=== PATIENT | female | born 1990 | race Caucasian/White ===

== ENCOUNTER 2017-04-16 21:05 | Emergency (ER) | payer OTHER ==
--- NOTE | 2017-04-16 21:21 | EDPHY ---
H & P Stated Complaint: Poss panic attack Source: Patient Exam Limitations: No limitations - Personal History LMP (Females 10-55): IUD In Place Current Tetanus/Diphtheria Vaccine: Yes Current Tetanus Diphtheria and Acellular Pertussis (TDAP): Yes - Medical/Surgical History Hx Asthma: No Hx Chronic Respiratory Disease: No Hx Diabetes: No Hx Cardiac Disease: No Hx Renal Disease: No Hx Cirrhosis: No Hx Alcoholism: No Hx HIV/AIDS: No Hx Splenectomy or Spleen Trauma: No Other PMH: anxiety - Social History Smoking Status: Never smoked Time Seen by Provider: 04/16/17 21:20 HPI/ROS: HPI: This is a 27-year-old female who presents with Chief Complaint: Possible anxiety attack Location: Head Quality: Dizziness Duration: Several days Signs and Symptoms: No fever, no chills, no neck stiffness, headache, no vision changes, no photophobia, no sensitivity, no abdominal pain, no nausea, no vomiting, no urinary symptoms, no chest pain, no palpitations Timing: Intermittent episodes Severity: Moderate Context: Patient reports that 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 She denies the room spinning around. She then started to feel her whole body hot and tingling run down both arms. She reports that was not a particular stressful evening. She is concerned is these episodes have been occurring over the last 2-3 days lasting approximately 1-2 hours at a time and resolving on its own. She does report she has anxiety but feels like this is different. Denies any upper respiratory symptoms, fever, neck stiffness, headache. IUD in place. She is generally healthy and does not have a primary care provider. Modifying Factors: None Comment: ROS: see HPI Constitutional: No fever, no chills, no weight loss Eyes: No blurred vision Respiratory: No shortness of breath, no cough Cardiovascular: No chest pain Gastrointestinal: No nausea, no vomiting, no diarrhea Genitourinary: No dysuria Extremities: No myalgias Neurologic: No weakness, no numbness Skin: No rashes Hematologic: No bruising, no bleeding MEDICAL/SURGICAL/SOCIAL HISTORY: Medical history: Generally healthy. Does not take any regular medications. Surgical history: Denies Social history: Employed. CONSTITUTIONAL: Tearful adult white female, polite and cooperative, awake and alert, no obvious distress HEENT: Atraumatic and normocephalic, PERRL, EOMI. Tympanic membranes clear. Oropharynx clear, no exudate and moist pink mucosa. Airway patent. No lymphadenopathy. No meningismus. Cardiovascular: Normal S1/S2, regular rate, regular rhythm, without murmur rub or gallop. PULMONARY/CHEST: Symmetrical and nontender. Clear to auscultation bilaterally. Good air movement. No accessory muscle usage. ABDOMEN: Soft, nondistended, nontender, no rebound, no guarding, no peritoneal signs, no masses or organomegaly. No CVAT. EXTREMITIES: 2/2 pulses, strength 5/5, no deformities, no clubbing, no cyanosis or edema. NEUROLOGICAL: no focal neuro deficits. GCS 15. SKIN: Warm and dry, no erythema. no rash. Good capillary refill. (Esthela Cochran) Constitutional: Initial Vital Signs Temperature (C) 36.3 C 04/16/17 21:06 Heart Rate 80 04/16/17 21:06 Respiratory Rate 18 04/16/17 21:06 Blood Pressure 140/94 H 04/16/17 21:06 O2 Sat (%) 99 04/16/17 21:06 O2 Delivery Mode Room Air Allergies/Adverse Reactions: No Known Allergies Allergy (Unverified 04/16/17 21:09) Home Medications: Medication Instructions Recorded NK [No Known Home Meds] 04/16/17 Medical Decision Making - Diagnostics EKG Interpretation: EKG: Complete interpretation has been separately recorded in the [email or web address] archive. Summary impression: Sinus rhythm, rate 66 (Nic Mark) Procedures: 12 lead EKG: Indication: Dizziness Rhythm: Normal sinus rhythm, rate 66 beats per minute [place]: Normal Intervals: Normal QRS: Normal ST segments: Normal INTERPRETATION: Normal EKG The 12 lead EKG was interpreted by myself and with attending. (Esthela Cochran) ED Course/Re-evaluation: Labs, urinalysis, EKG, IV fluids, IV medications ordered Given 1 L normal saline IV Ativan mg Vital signs reviewed and unremarkable Labs reviewed and unremarkable. No signs of anemia/electrolyte imbalance/acute kidney injury/elevated LFTs/pulmonary embolism EKG reviewed and no signs of arrhythmia TSH level noted to be elevated; free T4 within limits; no signs of myxedema coma. Advised to follow up with primary care provider to start thyroid medication Urinalysis shows trace bacteria and trace blood; asymptomatic; sent for urine culture; will not start prophylactic antibiotic therapy (Esthela Cochran) Differential Diagnosis: Shortness of breath including but not limited to anxiety, asthma, pulmonary embolus and viral syndrome. (Esthela Cochran) - Data Points Laboratory Results: Laboratory Results 04/16/17 22:00 04/16/17 22:00 04/16/17 04/16/17 04/16/17 22:59 22:00 22:00 WBC RBC Hgb Hct MCV MCH MCHC RDW Plt Count MPV Neut % (Auto) Lymph % (Auto) [place] % (Auto) Eos % (Auto) Baso % (Auto) Nucleat RBC Rel Count Absolute Neuts (auto) Absolute Lymphs (auto) Absolute Monos (auto) Absolute Eos (auto) Absolute Basos (auto) Absolute Nucleated RBC Immature Gran % Immature Gran # D-Dimer 0.28 ug/mLFEU ug/mLFEU (0.00-0.50) Sodium Potassium Chloride Carbon Dioxide Anion Gap BUN Creatinine Estimated GFR Glucose Calcium TSH Free T4 Beta HCG, Qual NEGATIVE Specimen Hemolysis Urine Color COLORLESS Urine Appearance CLEAR Urine pH 6.0 (5.0-7.5) Ur Specific [place] 1.001 L (1.002-1.030) Urine Protein NEGATIVE (NEGATIVE) Urine Ketones NEGATIVE (NEGATIVE) Urine Blood 1+ H (NEGATIVE) Urine Nitrate NEGATIVE (NEGATIVE) Urine Bilirubin NEGATIVE (NEGATIVE) Urine Urobilinogen NEGATIVE EU EU (0.2-1.0) Ur Leukocyte Esterase NEGATIVE (NEGATIVE) Urine RBC 1-3 /hpf /hpf (0-3) Urine WBC 1-3 /hpf /hpf (0-3) Ur Epithelial Cells NONE SEEN /lpf /lpf (NONE-1+) Urine Bacteria TRACE /hpf H /hpf (NONE SEEN) Urine Glucose NEGATIVE (NEGATIVE) 04/16/17 04/16/17 04/16/17 22:00 22:00 21:00 WBC 8.84 10^3/uL 10^3/uL (3.80-9.50) RBC 4.76 10^6/uL 10^6/uL (4.18-5.33) Hgb 14.8 g/dL g/dL (12.6-16.3) Hct 42.4 % % (38.0-47.0) MCV 89.1 fL fL (81.5-99.8) MCH 31.1 pg pg (27.9-34.1) MCHC 34.9 g/dL g/dL (32.4-36.7) RDW 12.4 % % (11.5-15.2) Plt Count 237 10^3/uL 10^3/uL (150-400) MPV 10.3 fL fL (8.7-11.7) Neut % (Auto) 71.0 % % (39.3-74.2) Lymph % (Auto) 21.3 % % (15.0-45.0) [place] % (Auto) 5.8 % % (4.5-13.0) Eos % (Auto) 1.0 % % (0.6-7.6) Baso % (Auto) 0.8 % % (0.3-1.7) Nucleat RBC Rel Count 0.0 % % (0.0-0.2) Absolute Neuts (auto) 6.28 10^3/uL 10^3/uL (1.70-6.50) Absolute Lymphs (auto) 1.88 10^3/uL 10^3/uL (1.00-3.00) Absolute Monos (auto) 0.51 10^3/uL 10^3/uL (0.30-0.80) Absolute Eos (auto) 0.09 10^3/uL 10^3/uL (0.03-0.40) Absolute Basos (auto) 0.07 10^3/uL 10^3/uL (0.02-0.10) Absolute Nucleated RBC 0.00 10^3/uL 10^3/uL (0-0.01) Immature Gran % 0.1 % % (0.0-1.1) Immature Gran # 0.01 10^3/uL 10^3/uL (0.00-0.10) D-Dimer Sodium 141 mEq/L mEq/L (134-144) Potassium 4.0 mEq/L mEq/L (3.5-5.2) Chloride 104 mEq/L mEq/L (97-110) Carbon Dioxide 24 mEq/l mEq/l (22-31) Anion Gap 13 mEq/L mEq/L (8-16) BUN 10 mg/dL mg/dL (7-23) Creatinine 0.7 mg/dL mg/dL (0.6-1.0) Estimated GFR > 60 Glucose 112 mg/dL H mg/dL (70-100) Calcium 9.7 mg/dL mg/dL (8.5-10.4) TSH 7.210 uIU/mL H uIU/mL (0.465-4.680) Free T4 0.99 ng/dL ng/dL (0.59-2.19) Beta HCG, Qual Specimen Hemolysis 108 Urine Color Urine Appearance Urine pH Ur Specific [place] Urine Protein Urine Ketones Urine Blood Urine Nitrate Urine Bilirubin Urine Urobilinogen Ur Leukocyte Esterase Urine RBC Urine WBC Ur Epithelial Cells Urine Bacteria Urine Glucose Medications Given: Discontinued Medications Sodium Chloride (Ns) 1,000 mls @ 0 mls/hr IV ONCE ONE; Wide Open PRN Reason: Protocol Stop: 04/16/17 21:42 Last Admin: 04/16/17 21:59 Dose: 1,000 mls Lorazepam (Ativan Injection) 1 mg IVP EDNOW ONE Stop: 04/16/17 21:43 Last Admin: 04/16/17 21:59 Dose: 1 mg Departure - Departure Disposition: Home, Routine, Self-Care Clinical Impression: Dizziness of unknown cause, Abnormal thyroid function test Condition: Good Instructions: Hypothyroidism (ED), Lightheadedness (ED), Dizziness (ED) Additional Instructions: Your thyroid level was elevated today. Please follow up with your PCP in 5-7 days for further evaluation and treatment. Referrals: Carlos Queen MD [Primary Care Provider] - 5-7 days, call for appt.
[2017-04-16] MEDS ORDERED: NS 1,000 ML IV ONE (21:41)
[2017-04-16] MEDS ORDERED: LORazepam 2 MG/ML INJ IVP ONE (21:42)
[2017-04-16 22:15] LABS: % IMMATURE GRANULYOCYTES 0.1 % (0.0-1.1); ABSOLUTE IMMATURE GRANULOCYTES 0.01 10^3/uL (0.00-0.10); ADD DIFF? NO; ADD MORPH? NO; ATYPICAL LYMPHOCYTE FLAG 10 (0-99); FRAGMENT RBC FLAG 0 (0-99); HEMATOCRIT 42.4 % (38.0-47.0); HEMOGLOBIN 14.8 g/dL (12.6-16.3); LEFT SHIFT FLG 0 (0-99); LIPEMIA HEMOLYSIS FLAG 90 (0-99); MEAN CELL HEMOGLOBIN 31.1 pg (27.9-34.1); MEAN CELL HEMOGLOBIN CONCENTR. 34.9 g/dL (32.4-36.7); MEAN CELL VOLUME 89.1 fL (81.5-99.8); MEAN PLATELET VOLUME 10.3 fL (8.7-11.7); PLATELET COUNT 237 10^3/uL (150-400); RED BLOOD CELL COUNT 4.76 10^6/uL (4.18-5.33); RED CELL DISTRIBUTION WIDTH 12.4 % (11.5-15.2)
--- NOTE | 2017-04-16 22:15 | CPEKG ---
Heart Rate: 66 RR Interval: 909 P-R Interval: 204 QRSD Interval: 88 QT Interval: 408 QTC Interval: 428 P Somis: 56 QRS [place]: 41 T Wave Som[place]: 33 EKG Severity - NORMAL ECG - EKG Impression: SINUS RHYTHM Electronically Signed By: Nic Mark 16-Apr-2017 22:45:01
[2017-04-16 22:16] LABS: ADD SCAN? NO; PLATELET CLUMPS FLAG 10 (0-99)
[2017-04-16 22:29] LABS: ANION GAP 13 mEq/L (8-16); CALCIUM 9.7 mg/dL (8.5-10.4); CARBON DIOXIDE 24 mEq/l (22-31); CHLORIDE 104 mEq/L (97-110); CREATININE 0.7 mg/dL (0.6-1.0); GLOMERULAR FILTRATION RATE > 60; GLUCOSE 112 mg/dL (70-100); SODIUM 141 mEq/L (134-144); SPECIMEN HEMOLYSIS 108
[2017-04-16 23:11] LABS: COLOR COLORLESS; LEUKOCYTE ESTERASE,URINE NEGATIVE (NEGATIVE); NITRITE,URINE NEGATIVE (NEGATIVE)
[2017-04-16 23:15] LABS: BACTERIA TRACE /hpf (NONE SEEN)
[2017-04-17 00:45] VITALS: TEMP 98.4
[2017-04-17 00:47] VITALS: BP 130/88; PULSE 70; RESP 16; O2SAT 95
== END 2017-04-17 01:08 | disposition home or self-care (01) ==
DX: R42 Dizziness and giddiness (principal); R94.6 Abnormal results of thyroid function studies; E86.9 Volume depletion, unspecified
CPT/HCPCS: 96374; J2060